=== PATIENT | female | born 1990 | race Caucasian/White ===

== ENCOUNTER 2016-10-30 01:25 | Emergency (ER) | payer BC, OTHER ==
[~2016-10-30] VITALS: Ht 170.2 cm; Wt 123.6 kg
[~2016-10-30 01:25] MED LIST: PRENTAB26 PO
[2016-10-30 01:28] VITALS: TEMP 36.6; Ht 170.2 cm; Wt 123.6 kg
[2016-10-30] MEDS ORDERED: AMOXICILLIN 250 MG CAP PO STA (01:36)
[2016-10-30] MEDS ORDERED: AMOX500C3 PO (01:38)
[2016-10-30] MEDS ORDERED: OXYCODONE IR HOME PACK PO ONE (01:45)
--- NOTE | 2016-10-30 01:45 | EMERGENCY ROOM VISIT NOTE ---
History First contact with patient: 01:31 Chief Complaint: EAR PAIN Stated Complaint: PAIN IN RIGHT INNER EAR History of Present Illness The patient is a 26 year old female who presents to the Emergency Room with complaints of right ear pain for the past day has had cold symptoms for the week. She describes the pain as aching, ranging in severity 8 out of 10. Nothing makes it better or worse. Patient denies chest pain, dyspnea, headache , neck stiffness, sore throat, abdominal pain, dental pain. She is tolerated by mouth fluids and food. Review of Systems See HPI for pertinent positives & negatives. A total of 10 systems reviewed and were otherwise negative. Past Medical/Surgical History None Social History Smoking Status: Never Smoker Smokeless Tobacco Use: No Alcohol Use: none Drug Use: none Occupation Status: employed Current/Historical Medications Scheduled Amoxicillin (Amoxil), 500 MG PO TID Multivit/Min/Iron/Fol Ac/Pren ( Vitamin), 1 TAB PO DAILY Allergies Coded Allergies: No Known Allergies (Unverified , 10/30/16) Physical Exam Vital Signs Date Time Temp Pulse Resp B/P Pulse Ox O2 Delivery O2 Flow Rate FiO2 10/30/16 01:28 36.6 81 20 152/89 97 Room Air Physical Exam VITALS: Vitals are noted on the nurse's note and reviewed by myself. Vital signs stable. GENERAL: Pleasant female, in no acute distress, nondiaphoretic, well-developed well-nourished. SKIN: The skin was without rashes, erythema, edema, or bruising. There is no tenting of the skin. Capillary reflex less than 2 seconds. HEAD: Normocephalic atraumatic. EARS: Right tympanic membrane bulging consistent with otitis media, left External auditory canals clear, tympanic membranes pearly johns without erythema or effusion no mastoid tenderness bilaterally. EYES: Pupils equal round and reactive to light and accommodation. Conjunctivae without injection, sclerae without icterus. Extraocular movements intact. NOSE: Patent, turbinates without inflammation or discharge. No sinus tenderness. MOUTH: Mucous membranes moist. Pharynx without erythema or exudate. Uvula midline. Airway patent. Tongue does not deviate. NECK: Supple without nuchal rigidity. No lymphadenopathy. No thyromegaly. Cervical spine is nontender. No JVD. HEART: Regular rate and rhythm without murmurs gallops or rubs. LUNGS: Clear to auscultation bilaterally without wheezes, rales or rhonchi. No dullness to percussion. No retractions or accessory muscle use. ABDOMEN: Positive bowel sounds x 4. Normal tympanic percussion. Soft, nontender, without masses or organomegaly. Vera sign negative. No guarding or rebound tenderness. MUSCULOSKELETAL: No muscle atrophy, erythema, or edema noted. NEURO: Patient was alert and oriented to person place and time. Normal sensation to light and sharp touch. No focal neurological deficits. Medical Decision & Procedures ED Course Prior records reviewed and summarized as above. Triage Nursing notes reviewed. The patient's history was concerning for cold symptoms Differential diagnosis: Etiologies such as otitis, pna, viral illness, strep, pharyngitis, meningitis, mastoiditis, as well as others were entertained.. Physical examination: The physical examination was consistent with otitis ER treatment provided: Oxacillin On reassessment the patient felt better. Diagnostics interpreted by me: Deferred This appears to be otitis. Patient was started on antibiotics. No signs of meningitis or mastoiditis. She is well-appearing. She is advised take medications as directed and to follow-up family care in a few days or here in the ER sooner for severe pain, fever, neck stiffness, worsening signs or symptoms or as needed.By the evaluation outlined above emergent etiologies such as meningitis, mastoiditis, pneumonia, as well as others were deemed relatively unlikely. The pt informed about the findings as listed above. All questions were answered and pleased with the treatment. Return instructions were outlined and the patient was discharged in stable condition. Outpatient prescription management: amoxil Referral: The patient was referred back to primary care physician for follow-up in 2 to 3 days for a recheck of the current condition. Medical Decision as above Impression Primary Impression: Right otitis media Departure Information Dispostion Home / Self-Care Condition GOOD Prescriptions Amoxicillin (AMOXIL) 500 Mg Cap 500 MG PO TID for 10 Days, #30 CAP Prov: Trudy Medina .JUAN 10/30/16 Forms WORK / SCHOOL INSTRUCTIONS, HOME CARE DOCUMENTATION FORM, Days off work : 2 Work Instructions, IMPORTANT VISIT INFORMATION Patient Instructions My [facility], ED Otitis Media Abx Tx Additional Instructions Amoxicillin 500mg: Take one pill 3 times daily for 10 days for your infection. All antibiotics can cause diarrhea. If this occurs and you feel worse or it does not resolve in 1-2 days follow up with your doctor or return to the Emergency Department as this could be signs of serious underlying problems. Any medication can cause an allergic reaction, stop the pills immediately and return to the ER for rash, hives, breathing difficulties, or swelling. Ibuprofen(Motrin, Advil) may be used for fever or pain. Use 600mg every six hours as needed. Take with food. Avoid using more than 2400mg in a 24 hour period. Do not use 2400mg per day for more than three consecutive days without physician direction. Prolonged inappropriate use can lead to stomach upset or ulcers. (AND/OR) Acetaminophen(Tylenol) may be used for fever or pain. Use 1000mg every six hours as needed. Avoid using more than 3000mg in a 24 hour period. Oxycodone (OxyIR) 5mg: Take 1-2 pills every four hours for breakthrough pain. Avoid alcohol, operating machinery or dangerous equipment, working on ladders or roofs, DRIVING, or situations where being under the influence may be dangerous. It is recommended to use an [id number] stool softener such as Colace, 100mg twice daily while taking this medication to avoid constipation. Rest and drink plenty of fluids. Continue current medications. Return to the ER for severe pain, fevers, neck stiffness, confusion, or any worsening of your condition. Follow up with your primary physician within 2-3 days for a recheck of the current condition. Problem Qualifiers Primary Impression: Right otitis media Otitis media type: suppurative Chronicity: acute Recurrence: not specified as recurrent Spontaneous tympanic membrane rupture: without spontaneous rupture Qualified Codes: H66.001 - Acute suppurative otitis media without spontaneous rupture of ear drum, right ear
[2016-10-30 01:50] VITALS: BP 152/89; PULSE 81; O2SAT 97
== END 2016-10-30 01:51 | disposition home or self-care (01) ==
LOC: C.EDB 01:26
DX: H66.001 Acute suppurative otitis media without spontaneous rupture of ear drum, right ear (principal)